=== PATIENT | male | born 1945 ===

== ENCOUNTER 2018-08-16 13:37 | Inpatient (IN) | payer OTHER ==
[~2018-08-16] VITALS: Ht 180.3 cm; Wt 70.3 kg
[2018-08-16] MEDS ORDERED: SYNTHROID50 MCG PO (13:56)
[2018-08-25] MEDS ORDERED: CIPRO500 MG PO (14:44)
[2018-08-25] MEDS ORDERED: FLAGYL500MG PO (14:44)
== END 2018-08-25 14:53 | disposition home or self-care (01) | DRG 373 ==
LOC: ER 13:37 → SEC-K 16:45 → SURG 16:45 → MEDJ 08-17 05:03 → SEC-K 08-17 05:16 → O/R 08-17 11:20 → SEC-K 08-17 14:06 → SURG 08-17 19:39
PROVIDERS: ADMIT Surgery
PROC: 0W9J30Z Drainage of Pelvic Cavity with Drainage Device, Percutaneous Approach (ICD-10-PCS; principal; 2018-08-18)
PROC: BW21ZZZ Computerized Tomography (CT Scan) of Abdomen and Pelvis (ICD-10-PCS; 2018-08-23)
DX: K35.33 Acute appendicitis with perforation, localized peritonitis, and gangrene, with abscess (principal); E03.8 Other specified hypothyroidism; K57.30 Diverticulosis of large intestine without perforation or abscess without bleeding